=== PATIENT | male | born 1980 | race African-American/Black ===

== ENCOUNTER 2021-03-06 13:52 | Outpatient (CLI) | payer SELFPAY | END 2021-03-06 13:53 | disposition home or self-care (01) | LOC: MADLAB 13:52 | DX: Z51.81 Encounter for therapeutic drug level monitoring (principal); Z79.899 Other long term (current) drug therapy | CPT/HCPCS: 99001 ==

== ENCOUNTER 2023-01-15 23:15 | Emergency (ER) | payer SELFPAY ==
[2023-01-15] MEDS ORDERED: Ibuprofen 800 MG TAB ONE (23:46)
== END 2023-01-16 00:26 | disposition home or self-care (01) ==
LOC: MADERS 23:15
DX: M54.50 Low back pain, unspecified (principal); V44.9XXA Unspecified car occupant injured in collision with heavy transport vehicle or bus in traffic accident, initial encounter
CPT/HCPCS: 72110